=== PATIENT | male | born 1970 | race Caucasian/White ===

== ENCOUNTER 2020-05-31 21:14 | Emergency (ER) | payer MEDICAID, SELFPAY ==
--- NOTE | ~2020-05-31 | XR_ITS ---
EXAMINATION: XR chest 1V DATE: 05/31/2020 22:52 INDICATION: Stroke TECHNIQUE: frontal view of the chest was obtained. COMPARISON: None FINDINGS: The lungs are clear with no focal airspace opacities, pulmonary edema, pleural effusion or pneumothor ax. Borderline heart size accounting for AP technique. IMPRESSION: 1. Borderline heart size accounting for AP technique. No acute cardiopulmonary disease. Reviewed, dictated and finalized at location . OR WEALTH ADVISOR
--- NOTE | ~2020-05-31 | CT_ITS ---
EXAMINATION: CTA BRAIN/CAROTID DATE: 05/31/2020 23:07 INDICATION: Stroke with TECHNIQUE: Computed tomographic angiography (CTA) of the head and neck was performed with 100 mL Omni paque-350 intravenous contrast. Multiplanar reconstructions and maximum intensity projection 3D-recon structions of the carotid arteries and of the intracranial arteries were created by the technologist on a separate workstation. Precontrast CT of the head was also obtained. Automated exposure control and iterative reconstruction technique were employed.The dose-length product was 2048.88 mGy-cm. COMPARISON: None. FINDINGS: Carotid arteries: Thoracic arch is normal in caliber with no evident atherosclerotic disease. There is 35% stenosis of the right carotid bulb relative to normal distal artery lumen diameter (NASCET criteria). There is 10 % stenosis of the left carotid bulb relative to normal distal artery lumen diameter. Mild paraseptal emphysema in the bilateral upper lobes. Calcified right hilar and mediastinal lymph nodes consistent with old granulomatous disease. Mild cervical spondylosis. Head: Small old infarct involving right basal ganglia including the anterior but from nucleus, anterior castellanos b of the internal capsule and head of the right caudate nucleus. Additional small old infarct at the left cerebellar hemisphere. There is an additional small infarct in the right cerebellar hemisphere w ith less prominent decreased attenuation consistent with age-indeterminate infarct. No acute intracra nial hemorrhage or abnormal extra axial fluid collection. There is mild scattered white matter hypoat tenuation consistent with chronic small vessel ischemic disease. Ventricles are normal and symmetric. No mass/mass effect. Mild mucosal thickening the bilateral maxillary sinuses. Periapical erosions at the posterior most right maxillary molars. The orbits and mastoid air cells are normal. Intracranial arteries Bilateral vertebral arteries are codominant proximal to the takeoffs of the posterior inferior cerebe llar arteries (PICA). The right vertebral artery between the takeoff of the right PICA and the confl uence with the left vertebral artery is diminutive. There is negligible contrast along an approximate ly 1 cm long segment of the proximal basilar artery consistent with either a severe, >70% stenosis or nearly occlusive thrombosis. The bilateral P1 segments are patent but smaller in caliber than the pa tent bilateral posterior to indicating arteries. There is atherosclerotic plaque with <50% stenosis a t the bilateral carotid siphons. The bilateral M1 and A1 segments are patent. There are no aneurysms identified. Cerebral arterial arborization appears symmetric. IMPRESSION: 1. 35% stenosis of the right carotid bulb relative to normal distal artery lumen diameter (NASCET cri teria). 2. 10% stenosis of the left carotid bulb relative to normal distal artery lumen diameter. 3. 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 4. Age-indeterminate, potentially acute or subacute small infarct in the right cerebellar hemisphere. 5. Old infarcts in the right basal ganglia and left cerebellar hemisphere. Reviewed, dictated and finalized at location H. MOLDING MACHINE OPERATOR IMPRESSION: 1. 35% stenosis of the right carotid bulb relative to normal distal artery lume n diameter (NASCET criteria). 2. 10% stenosis of the left carotid bulb relative to normal distal artery lumen diameter. 3. Severe stenosis versus nonocclusive thrombosis in the proximal basilar arter y. 4. Age-indeterminate, potentially acute or subacute small infarct in the right cerebellar hemisphere. 5. Old infarcts in the right basal ganglia and left cerebellar hemisphere.
[2020-05-31 21:23] VITALS: BP 194/136; PULSE 122; RESP 24; TEMP 36.9; O2SAT 97
--- NOTE | 2020-05-31 21:45 | ECG_ITS ---
Measurements Intervals [place] Rate: 126 P: 61 MN: 138 QRS: 11 QRSD: 109 T: 56 QT: 320 QTc: 465 Interpretive Statements SINUS TACHYCARDIA DELAYED PRECORDIAL R/S TRANSITION BORDERLINE ST-T WAVE ABNORMALITY- LAT/HIGH LAT LEADS BASELINE ARTIFACT- I, II, AVR, AVF ABNORMAL ECG Electronically Signed On 06-01-2020 9:58:20 ELECTRONIC SCALE TESTER by Alvin Jim D.O.
[2020-05-31 21:56] LABS: Basophils Absolute Auto 0.1 K/mm3 (0.0-0.1); Basophils Percent Auto 0.6 % (0.2-1.2); Eosinophils Percent Auto 0.2 % (0-4.4); Hematocrit 49.3 % (42.0-52.0); Hemoglobin 16.9 g/dL (14.0-18.0); Immature Granulocyte Absolute 0.07 K/mm3 (0.00-0.031); Immature Granulocyte Percent A 0.6 % (0-0.5); Lymphocytes Absolute Auto 2.09 K/mm3 (0.9-3.2); Lymphocytes Percent Auto 16.7 % (18.3-44.2); Mean Corpuscular HGB Conc 34.3 g/dl (32-36); Mean Corpuscular Volume 90.3 fl (80-100); Mean Platelet Volume 11.4 fl (7.4-10.4); Monocytes Absolute Auto 0.7 K/mm3 (0.1-0.6); Monocytes Percent Auto 5.8 % (2.6-8.5); Neutrophils Absolute Auto 9.5 K/mm3 (1.3-6.7); Neutrophils Percent Auto 76.1 % (45.5-73.1); Platelet Count Result 350 k/mm3 (150-375); Red Blood Count 5.46 M/mm3 (4.6-6.20); Red Cell Distribution Width 12.4 % (11.5-14.5); White Blood Count 12.5 K/mm3 (4.5-10.0)
[2020-05-31] MEDS: LABETALOL HCL INJ 100 MG/20 ML VIAL 20 MG IV PUSH (21:59)
[2020-05-31 22:00] VITALS: BP 160/97; PULSE 88; RESP 22; O2SAT 95
--- NOTE | 2020-05-31 22:05 | PC.NURSE ---
I did not do the EKG
[2020-05-31 22:13] LABS: Albumin Level 4.6 g/dL (3.5-5.1); Alkaline Phosphatase 76 U/L (38-126); Anion Gap 18 mmol/L (8-16); Aspartate Amino Transferase 41 U/L (17-59); Bilirubin,Total 1.1 mg/dL (0.2-1.3); Blood Urea Nitrogen 12 mg/dL (9-20); Calcium 9.7 mg/dL (8.4-10.2); Carbon Dioxide 22 mmol/L (22-30); Chloride 97 mmol/L (98-107); Estimated CRCL calculation 135 ml/min; Estimated Glomerular Filt Rate > 60; Glucose 296 mg/dL (75-110); Potassium 4.1 mmol/L (3.4-5.0); Sodium 137 mmol/L (137-145)
--- NOTE | 2020-05-31 22:15 | PC.NURSE ---
this rn called CT about when they're going to come get room [address] they stated theyd be down shortly.
[2020-05-31 22:20] LABS: Partial Thromboplastin Time 28.1 SECONDS (22.3-36.8)
[2020-05-31 22:20] LABS: Alanine Aminotransferase 52 U/L (4-50)
[2020-05-31 22:21] LABS: Troponin I < 0.012 ng/mL (0.000-0.034)
--- NOTE | 2020-05-31 22:22 | ED.HA ---
HPI - Headache General Chief Complaint: Headache Stated Complaint: neuro Time Seen by Provider: 05/31/20 21:25 History of Present Illness HPI Narrative: Patient is a 49-year-old male who presents ER with strokelike symptoms. Reports earlier today at 10:30 AM he was at work when he developed a bitemporal headache that was not thunderclap in nature. Radiated to the back of his head. It caused him to be dizzy and have difficulty walking. Since then he is also had some diplopia. Patient then went home and went to bed. He woke up and went to the bathroom and stumbled and fell. Family heard him fall and went up to check on him. They report that he also has some slurred speech is going with his symptoms. Patient's fall and slurred speech occurred about 8:30 PM Review of Systems Review of Systems: All systems reviewed & are unremarkable except as noted in HPI and below Constitutional: Constitutional: Denies chills, Denies fever(s) and Denies weakness Eyes: Eyes: Reports change in vision Comments: Diplopia Cardiovascular: Cardiovascular: Denies chest pain, Denies rapid heart rate and Denies radiating jaw, neck or arm pain Respiratory: Respiratory: Denies cough and Denies dyspnea Neurologic: Reports vertigo, Reports headache(s), Denies focal weakness and Denies numbness Comments: Slurred speech PMFSH Past Medical History Medical History (Updated 06/01/20 @ 00:11 by Riky Coleman MD) Hypertension Surgical History Surgical History (Updated 05/31/20 @ 22:31 by Riky Coleman MD) No history of previous surgery Exam Narrative: Exam Narrative: GENERAL: Well-appearing, well-nourished, and in no acute distress. HEAD: Normocephalic, atraumatic. EYE: PERRL, patient does not move his eyes laterally will move them vertically. ENT: Mucous membranes moist. CHEST: Tachycardic and regular. No respiratory distress. HEART: Regular rate and rhythm. Normal peripheral pulses. ABDOMEN: Soft, nontender, nondistended. EXTREMITIES: Normal range of motion. No edema. SKIN: Warm, dry, no rash. NEURO: No upper or lower extremity drift. Mild slurred speech. No facial droop. Normal finger-nose testing and [id number]-[id number] testing. Alert and oriented x3. PSYCH: Normal mood and affect. Course Reevaluation(s) Reevaluation #1: Discussed case with Dr. Cid with the stroke team at [facility]. At this time TPA is not recommended. She would like the patient in the ER for repeat CTA and possible endovascular intervention Dr. Cid feels it is time critical to get the patient to the ER. Accepted to the ED by Dr. Contreras. BP improved and stable after labetalol 20mg IV. Date: 06/01/20 Time: 00:09 Vital Signs Vital signs: Vital Signs Temperature 98.5 F 05/31/20 21:23 Pulse Rate 122 H 05/31/20 21:23 Respiratory Rate 24 H 05/31/20 21:23 Blood Pressure 194/136 H 05/31/20 21:23 Pulse Oximetry 97 05/31/20 21:23 Temperature 98.5 F 05/31/20 21:23 Pulse Rate 92 06/01/20 00:12 Respiratory Rate 28 H 06/01/20 00:12 Blood Pressure 181/105 H 06/01/20 00:12 Pulse Oximetry 94 06/01/20 00:12 MDM - Headache Lab Data Result diagrams: 05/31/20 21:50 05/31/20 21:50 Labs: Lab Results 05/31/20 05/31/20 05/31/20 Range/Units 21:48 21:48 21:50 WBC 12.5 H (4.5-10.0) K/mm3 RBC 5.46 (4.6-6.20) M/mm3 Hgb 16.9 (14.0-18.0) g/dL Hct 49.3 (42.0-52.0) % MCV 90.3 (80-100) fl MCH 31.0 (26-34) pg MCHC 34.3 (32-36) g/dl RDW 12.4 (11.5-14.5) % Plt Count 350 (150-375) k/mm3 MPV 11.4 H (7.4-10.4) fl Immature Gran % (Auto) 0.6 H (0-0.5) % Neut % (Auto) 76.1 H (45.5-73.1) % Lymph % (Auto) 16.7 L (18.3-44.2) % [place] % (Auto) 5.8 (2.6-8.5) % Eos % (Auto) 0.2 (0-4.4) % Baso % (Auto) 0.6 (0.2-1.2) % Lymph # (Auto) 2.09 (0.9-3.2) K/mm3 [place] # (Auto) 0.7 H (0.1-0.6) K/mm3 Eos # (Auto) 0.0 (0-0.3) K/mm3 Baso # (Auto) 0.1 (0.0-0.1) K/
[2020-05-31 23:23] VITALS: BP 150/105; PULSE 89; RESP 28; O2SAT 95
[2020-05-31] MEDS: ONDANSETRON INJ 4 MG/2 ML VIAL IV PUSH (23:34)
--- NOTE | 2020-06-01 00:04 | PC.NURSE ---
called [facility] to request transport. ETA [phone]
--- NOTE | 2020-06-01 00:04 | PC.NURSE ---
called [facility] to request transport to [place]. Declined
--- NOTE | 2020-06-01 00:07 | PC.NURSE ---
called [facility] to request transport. declined.
--- NOTE | 2020-06-01 00:10 | PC.NURSE ---
Addendum entered by Marylu Lee 06/01/20 00:19: [facility] return call at 0011. No answer from EMS Original Note: called [facility] to request transport to [place].
[2020-06-01] MEDS: PROMETHAZINE HCL 25 MG/ML AMPUL 12.5 MG IV PUSH (00:11)
[2020-06-01] MEDS: SODIUM CHLORIDE 0.9% IV 50 ML 100 ML (00:11)
[2020-06-01 00:12] VITALS: BP 181/105; PULSE 92; RESP 28; O2SAT 94
--- NOTE | 2020-06-01 00:18 | PC.NURSE ---
called [facility] request lights and sirens. ETA 20 minutes.
--- NOTE | 2020-06-01 00:20 | PC.NURSE ---
report to donny anderson @ [facility] pwending with a 20 miute eta
[2020-06-01 00:34] VITALS: BP 146/103; PULSE 95; RESP 20; O2SAT 95
--- NOTE | 2020-06-01 00:35 | PC.NURSE ---
[facility] here.
== END 2020-06-01 00:45 | disposition short-term general hospital (02) ==
PROVIDERS: Emergency Provider Emergency Medicine; PCP Internal Medicine
DX: I63.22 Cerebral infarction due to unspecified occlusion or stenosis of basilar artery (principal); R29.703 NIHSS score 3; I10 Essential (primary) hypertension; R00.0 Tachycardia, unspecified; R94.31 Abnormal electrocardiogram [ECG] [EKG]
CPT/HCPCS: 36415; 70496; 70498; 71045; 80053; 82948; 84484; 85025; 85610; 85730; 93005; 96361; 96374; 96375; 99285; J2405; J2550; Q9967

== ENCOUNTER 2023-06-25 09:46 | Outpatient (CLI) | payer OTHER, SELFPAY ==
--- NOTE | 2023-07-19 15:50 | WPDHOMESLEEP ---
Sleep Study - Home Unattended Date of Study: 06/25/23 Ordering Provider: Sami Eller Interpreting Provider: Lexi Velasquez DO Home Sleep Study Type: Watch PAT Height: 1.85 m Weight: 125.645 kg Body Mass Index: 36.5 Neck Circumference (inches): 18.5 [place]: 3 Reason for Sleep Study Previously diagnosed with CATA by home sleep test in 2018. Stopped using his CPAP machine due to recall. Sleep History The patient is a 52-year-old male with hypertension, diabetes, hyperlipidemia, history of stroke, history of tobacco use and previously diagnosed CATA that had a sleep study ordered by his cnmt for evaluation of sleep apnea. The sleep intake forms were not included in his chart. [facility] Past Medical History Medical History Hypertension CATA (obstructive sleep apnea) Surgical History Surgical History No history of previous surgery Sleep Procedure The sleep study was completed using WatchPAT a technically adequate device with seven channels: peripheral arterial tone, actigraphy, body position, snore, respiratory movement, pulse oximetry, sleep staging, and heart rate. Prior to using the device, the patient received verbal and written instructions for its application and was provided with the help desk phone number for additional telephonic instruction with 24-hour availability of qualified personnel to answer questions. The study was scored using CMS guidelines. Sleep Architecture The patient had a total recording time of 7 hours 4 minutes and a total sleep time of 5 hours 16 minutes. The sleep efficiency was 74.58%. The sleep latency was 31 minutes and the REM latency was 122 minutes. The patient had 15 awakenings. The patient spent 60.54% of total sleep time in light sleep, 18.63% of total sleep time in deep sleep and 20.83% of total sleep time in REM sleep. The patient spent 101.8 minutes, 32.1% of total sleep time in the supine position. Respiratory Analysis The patient had an overall AHI of 15.2 and a central apnea index of 0.2. The REM AHI was 12.8. Nadeem Vega respirations were not seen. Oximetry Data The patient had an average oxygen saturation of 93% with a minimum of 85% and a maximum of 99%. The patient had 68 desaturations that were 4% or greater, resulting in an oxygen desaturation index of 14.8. The patient had 68 desaturations between 4-9%. The patient spent 0.3 minutes, 0.1% of total sleep time with an oxygen saturation below 88%. Snoring Profile Snoring was present throughout the entire study. Cardiac Profile The average pulse was 71 beats per minute with a minimum of 42 beats per minute and a maximum of 98 beats per minute. Assessment and Plan Assessment and Plan (1) CATA (obstructive sleep apnea): Code(s): G47.33 - Obstructive sleep apnea (adult) (pediatric) Status: Acute Assessment and Plan: The patient had an overall AHI of 15.2 with desaturation down to 85%. This is consistent with moderate sleep apnea. I recommend that the patient be prescribed Resmed AirSense 11 AutoPAP 5-15 cm H2O, CPAP mask/filters/tubing and heated humidity. This should be used with all episodes of sleep.? Compliance should be reviewed within 31-90 days of starting therapy for usage greater than 4 hours per night greater than 70% of the nights. The patient should be asked about symptoms such as?excessive daytime sleepiness, quality of sleep, decreased nocturia, increased?mental functioning such as memory, mood, and concentration. Data The data obtained during this sleep study is adequate for interpretation. Certification This sleep study has been reviewed by a board certified sleep medicine physician.
[2023-07-19 15:51] VITALS: BMI 36.5
== END 2023-06-28 07:00 | disposition home or self-care (01) ==
LOC: ANHCSM 09:51
PROVIDERS: PCP Internal Medicine
DX: G47.30 Sleep apnea, unspecified (principal)
CPT/HCPCS: 95800; 95806